=== PATIENT | female | born 1975 | race Hispanic/Latino ===

== ENCOUNTER 2017-08-21 22:36 | Emergency (ER) | payer BC ==
[2017-08-21 22:45] VITALS: BP 128/64; PULSE 80; RESP 18; TEMP 98; O2SAT 96
--- NOTE | 2017-08-21 23:09 | ED PDOC ---
HPI: General Adult Time Seen by Provider: 08/21/17 23:04 Chief Complaint (Nursing): Foreign Body Chief Complaint (Provider): vaginal foreign body History Per: Patient (41 y/o female here with complaint of foreign body in vaginal canal since yesterday. Patient believes she has had condom stuck on her IUD. Notes mild vaginal irritation.) Past Medical History Reviewed: Historical Data, Nursing Documentation, Vital Signs Vital Signs: Last Vital Signs Temp 98 F 08/21/17 22:42 Pulse 80 08/21/17 22:42 Resp 18 08/21/17 22:42 BP 128/64 08/21/17 22:42 Pulse Ox 96 08/21/17 23:09 - Family History Family History: States: No Known Family Hx - Allergies Allergies/Adverse Reactions: Allergies Allergy/AdvReac Type Severity Reaction Status Date / Time pollen extracts Allergy ITCHING Verified 09/07/16 03:26 Review of Systems ROS Statement: Except As Marked, All Systems Reviewed And Found Negative Genitourinary Female: Positive for: Other (vaginal foreign body) Physical Exam - Reviewed Nursing Documentation Reviewed: Yes Vital Signs Reviewed: Yes - Physical Exam Appears: Positive for: Well, Non-toxic, No Acute Distress Head Exam: Positive for: ATRAUMATIC, NORMAL INSPECTION, NORMOCEPHALIC Skin: Positive for: Normal Color, Warm, DRY Eye Exam: Positive for: EOMI, Normal appearance, PERRL ENT: Positive for: Normal ENT Inspection Neck: Positive for: Normal, Painless ROM Cardiovascular/Chest: Positive for: Regular Rate, Rhythm Respiratory: Positive for: CNT, Normal Breath Sounds Gastrointestinal/Abdominal: Positive for: Normal Exam, Bowel Sounds, Soft Pelvic Exam: Positive for: Other (condom noted in vaginal canal.) Back: Positive for: Normal Inspection Extremity: Positive for: Normal ROM Neurologic/Psych: Positive for: Alert, Oriented - Laboratory Results Urine POC: Negative - ECG O2 Sat by Pulse Oximetry: 96 - Progress ED Course And Treament: verbal consent obtained prior to procedure foreign body removed without difficulty. Patient requests G/C testing but does not want any other STD testing. Disposition - Clinical Impression Clinical Impression: Vaginal foreign body - Patient ED Disposition Is Patient to be Admitted: No - Disposition Referrals: [facility] [Outside] Disposition: Routine/Home Disposition Time: 23:09 Condition: FAIR Instructions: Vaginal Foreign Body (ED) Forms: [employer] ([place])
== END 2017-08-21 23:33 | disposition home or self-care (01) ==
LOC: H.ER 22:36
DX: T19.2XXA Foreign body in vulva and vagina, initial encounter (principal)